=== PATIENT | female | born 1975 | race Caucasian/White ===

== ENCOUNTER 2016-03-18 17:35 | Emergency (ER) | payer OTHER ==
[~2016-03-18] VITALS: Ht 162.6 cm; Wt 122.7 kg
[~2016-03-18 17:35] MED LIST: CHOL100045 PO; DIME240C2 PO; MULT1TAB34 PO; ONDA4TAB9 PO
[2016-03-18 17:48] VITALS: BP 119/79; PULSE 89; RESP 18; O2SAT 97
[2016-03-18] MEDS ORDERED: Ondansetron 2 mg/mL 2 mL Inj IVPUSH ONE (19:45)
--- NOTE | 2016-03-18 19:54 | ED.REPORT ---
HPI-Abd Pain F Under 42 Date of Service Mar 18, 2016 ED Provider: Kevin Cisneros PA-C Claudia is a 32-year-old female who presents with chief complaint of right lower quadrant pain. She states the pain began insidiously approximately 2 days ago. She was seen by her primary care provider perform an ultrasound yesterday. Ultrasound revealed 2, approximately 2cm simple right ovarian cysts. Patient presents emergency room because her pain continues today, she has vomited twice and she developed a fever. She has taken Tylenol to treat the fever. Admits to constipation, anorexia, myalgia. Denies urinary symptoms , vaginal bleeding, discharge, . Denies history of appendectomy. History of tubal ligation, cholecystectomy and multiple sclerosis. Nursing Notes Stated Complaint: RIGHT SIDE ABDOMINAL PAIN, FEVER, VOMITING Chief Complaint: Female Abdominal Pain Nursing Notes Reviewed: Yes Allergies: Coded Allergies: morphine (Verified Allergy, Severe, 05/26/15) aggressive,not herself Contrast Media (Verified Allergy, Unknown, 05/26/15) Iodinated Contrast Media - IV Dye (Unverified Allergy, Unknown, 05/26/15) amoxicillin (Verified Allergy, Unknown, 05/26/15) sertraline (Verified Allergy, Unknown, 05/26/15) Penicillins (Verified Adverse Reaction, Severe, AMOXICILLIN - UPSET STOMACH, 05/26/15) Uncoded Allergies: MRI CONTRAST (Allergy, Severe, Anaphylaxis, 08/06/11) VERIFIED 08-06-11 PAROXATINE (Allergy, Unknown, 04/26/15) Scheduled Cholecalciferol (Vitamin D3) (Vitamin D) 1,000 Unit Capsule 6,000 UNIT PO DAILY Dimethyl Fumarate (Tecfidera) 240 Mg Capsule.dr 240 MG PO BID Multivitamins W-Minerals (One Tablet Daily W/Minerals) 1 Tab Tablet 1 TAB PO DAILYWM Scheduled PRN Ondansetron ODT (Zofran ODT) 4 Mg Tablet 4 MG PO Q4H PRN PRN For Nausea General Time Seen by MD: 19:30 Chief Complaint Abdominal pain Past Medical History Past Medical History Multiple sclerosis PID Rectal Bleeding Depression Anxiety Reports: Asthma, Hypertension Reports: Seizure disorder Past Surgical History Ovarian cyst removal in 2011 Tubal ligation in 2009 Gallbladder surgery Family History noncontributory Smoking History Unknown if Ever Smoker Social History Alcohol Use: Denies alcohol use Other Social History: Local resident Occupation Works at [employer] Ambulatory Status Independent Review of Systems General: Admits fever, chills, malaise. HEENT: Denies congestion, headache, sore throat. Respiratory: Denies dyspnea, cough, shortness of breath, wheezing. Cardiovascular: Denies chest pain, palpitations. Gastrointestinal: Admits vomiting, abdominal pain, constipation Genitourinary: Denies frequency, urgency, dysuria, hematuria. Denies vaginal bleeding/discharge Otherwise as noted in HPI. Physical Exam General: Well developed, well nourished, no acute distress. Head: Atraumatic, normocephalic. Eyes: No scleral icterus or injection. No discharge. Vision grossly intact. ENT: Voice clear, hearing grossly intact. Respiratory: Regular rate and rhythm. Breath sounds present, clear to auscultation and equal bilaterally. Cardiovascular: Regular rate and rhythm, without murmur, gallop or rub. No pedal edema. Gastrointestinal: Obese abdomen is tender over right quadrants, lower greater than upper, without rebound. Bowel sounds normoactive. Skin: Warm and dry. Neurological: Grossly nonfocal. Psychological: alert and oriented. Speech appropriate, linear and logical. Behavior appropriate. Initial Vital Signs Vital Signs (First) Date Time Temp Pulse Resp B/P Pulse Ox O2 Delivery O2 Flow Rate FiO2 03/18/16 17:48 34.2 89 18 119/79 97 Room Air Temperature measured to be 36.9C during physical exam Initial VS: Reviewed Interpretation & Diagnostics Lab Results Interpretation Result Diagram: 03/18/16194403/18/161944 Test 03/18/16 19:45 03/18/16 20:15 White Blood Count 7.5th/mm3 (3.8-10.1) Red Blood Count 4.57mil/mm3 (3.90-5.20) Hemoglobin 13.6g/dL (12.0-15.6) Hematocrit 40.5% (35.0-46.0) Mean Corpuscular Volume 88.6fL (81-100) Mean Corpuscular Hemoglobin 29.8pg (27.0-35.0) Mean Corpuscular Hemoglobin Concent 33.6% (32.0-37.0) Red Cell Distribution Width 12.9% (12.3-15.4) Platelet Count 241bil/L (150-400) Neutrophils (%) (Auto) 78.3% (40-74) Lymphocytes (%) (Auto) 10.8% (14-46) Monocytes (%) (Auto) 10.6% (4-12) Eosinophils (%) (Auto) 0.1% (0-5) Basophils (%) (Auto) 0.1% (0-3) Sodium Level 136mEq/L (134-144) Potassium Level 3.6mEq/L (3.5-5.2) Chloride Level 99mEq/L (97-108) Carbon Dioxide Level 24mmol/L (18-29) Blood Urea Nitrogen 13mg/dL (6-20) Creatinine 0.60mg/dL (0.57-1.00) Estimat Glomerular Filtration Rate 160mL/min (>59) Glucose Level 100mg/dL (60-99) Calcium Level 7.7mg/dL (8.5-10.1) Magnesium Level 1.8mg/dL (1.6-2.6) Total Bilirubin 0.7mg/dL (0.0-1.2) Aspartate Amino Transf (AST/SGOT) 15U/L (0-50) Alanine Aminotransferase (ALT/SGPT) 11U/L (0-32) Alkaline Phosphatase 56U/L (25-150) Total Protein 6.9g/dL (6.4-8.4) Albumin 3.8g/dL (3.4-5.0) Lipase 14U/L (13-60) Hold Spicer Top Tube Received (Received) Urine Color Dark yellow (YELLOW) Urine Appearance Clear (CLEAR,HAZY) Urine pH 6.0 (5.0-8.0) Urine Specific [place] 1.025 (1.003-1.035) Urine Protein Negativemg/dL (NEG,TRACE) Urine Glucose (UA) Negativemg/dL (NEGATIVE) Urine Ketones Negativemg/dL (NEGATIVE) Urine Occult Blood Negative (NEGATIVE) Urine Nitrite Negative (NEGATIVE) Urine Bilirubin Negative (NEGATIVE) Urine Urobilinogen Normalmg/dL (NORMAL) Urine Leukocyte Esterase Negative (NEGATIVE) Urine RBC 0-2/hpf (0-2) Urine WBC 0-5/hpf (0-5) Urine Epithelial Cells Moderate/hpf (NONE-MOD) Urine Crystals None seen (NONE SEEN) Urine Bacteria None/hpf (NONE-FEW) Urine Hyaline Casts None/lpf (NONE) Urine Granular Casts None seen (NONE SEEN) Urine Waxy Casts None seen (NONE SEEN) Urine Red Blood Cell Casts None seen (NONE SEEN) Urine White Blood Cell Casts None seen (NONE SEEN) Urine Mucus None seen (None Seen) Urine Trichomonas None seen (NONE SEEN) Urine Yeast None (NONE SEEN) Urinalysis Comment None Urine Culture Reflexed Not indicated Re-Eval/Medical Decision Med Decision/Clinical Course CT scan showed normal appendix. On my examination she is tender in the right mid to lower abdomen. I do not think she has ovarian torsion. Her ovaries do not look that impressive on the CT. I was most concerned for appendicitis and has been ruled out. At discharge her tenderness had nearly resolved with the opiates. She will be placed on a short course of Percocet for pain. Routine opiate and abdominal pain warnings were given. Discharge & Departure Primary Impression: Abdominal pain Abdominal location: right lower quadrant Qualified Code: R10.31 - Right lower quadrant pain Disposition: Home Discharge Condition All VS Reviewed: Yes Condition: Improved Patient Instructions: Acute Abdominal Pain (ED) Additional Instructions: The laboratory work was reassuring. The CAT scan shows a normal appendix. You do have a few subcentimeter hypodensities in your liver that are too small to characterize. These may need to be followed up with. I would like you to set up a follow-up with a primary care physician for next week to discuss this. For the pain you may take 1-2 Percocet every 6 hours. Drink plenty of liquids. Do not drive tonight or while taking the Percocet. Do not consume alcohol or acetaminophen while taking the Percocet. Return if any problems or any worsening symptoms. Follow up with your primary care doctor next week. Referrals: Bethany Melgar (PCP) copies to: Bethany Melgar Seth PA-C Mar 18, 2016 19:53 Thomas Shaikh DO Mar 19, 2016 00:28 JODY GAGNON Mar 19, 2016 00:29
[2016-03-18 20:03] LABS: BASOPHILS % (AUTO) 0.1 % (0-3); EOSINOPHILS % (AUTO) 0.1 % (0-5); MONOCYTES % (AUTO) 10.6 % (4-12); Mean Corpuscular Hemoglobin 29.8 pg (27.0-35.0); Mean Corpuscular Volume 88.6 fL (81-100); NEUTROPHILS % (AUTO) 78.3 % (40-74); Platelet Count 241 bil/L (150-400)
[2016-03-18 20:18] LABS: Magnesium 1.8 mg/dL (1.6-2.6)
[2016-03-18 20:56] LABS: APPEARANCE,URINE CLEAR (CLEAR,HAZY); COLOR,URINE DARK YELLOW (YELLOW); OCCULT BLOOD,URINE NEGATIVE (NEGATIVE); UROBILINOGEN,URINE NORMAL (NORMAL)
[2016-03-18] MEDS ORDERED: HYDROmorphone 0.5 mg/0.5 mL iSecure Syringe IVPUSH PRN (23:00)
[2016-03-18] MEDS ORDERED: Ondansetron 2 mg/mL 2 mL Inj IVPUSH PRN (23:15)
[2016-03-19] MEDS ORDERED: _oxyCODONE/APAP 5-325 mg Tablet PO PRN (00:30)
[2016-03-19 01:14] VITALS: BP 116/66; PULSE 68; RESP 18; O2SAT 98
[2016-03-19 01:16] VITALS: BP_SYST 108; BP_SYST 109; BP_SYST 116; BP_DIAS 66; BP_DIAS 67; BP_DIAS 72; PULSE 68; PULSE 71
--- NOTE | 2016-03-19 08:15 | DRSVH ---
PROCEDURE: CT ABDOMEN AND PELVIS WITH CONTRAST ([id number]) INDICATIONS: rlq pain TECHNIQUE: After the administration of intravenous contrast, 5 mm thick sections acquired from the diaphragm to the symphysis. 5 mm coronal and sagittal reformats were acquired. For radiation dose reduction, the following was used: automated exposure control, adjustment of mA and/or kV according to patient siflynn granados. COMPARISON: [facility], CT, ABD/PELVIS W/CON (PNL), 04/16/2007, 18:57. FINDINGS: Image quality: Excellent. ABDOMEN: Lung bases: Lung bases are clear. Heart size is normal. Solid organs: Liver is normal in size and enhancement. Liver shows several small sub-1.5 cm areas of decreased attenuation, too small to characterize but unchanged since the previous CT scan 04/16/07. Sp milton remains generous to mildly enlarged at 14.2 cm, unchanged in size since 2007. This would be cons istent with benign cause. Gallbladder has been removed. Biliary system is prominent consistent with post cholecystectomy status. Pancreas enhances normally. No adrenal nodules. Kidneys demonstrate no rmal size and enhancement, without hydronephrosis. Peritoneum and bowel: Bowel loops demonstrate normal wall thickness and caliber. No free fluid or a ir. The appendix is normal and seen on series 4 image 30. Nodes and vessels: No retroperitoneal or mesenteric adenopathy by size criteria. Aorta and inferior vena cava are normal in size. Miscellaneous: No ventral hernias. PELVIS: Genitourinary: Bladder wall thickness is normal. Miscellaneous: No inguinal hernias or adenopathy. Bones: No suspicious bony lesions. No vertebral body compression fractures. IMPRESSION: 1. Cause of right lower quadrant pain is not identified. Normal appendix normal right kidney. No maryjane s abnormality of uterus or ovaries. 2. 2 lesions in the right lobe of the liver unchanged in size since CT of 2007 and consistent with be nign cause but too small to characterize. 3. Previous cholecystectomy. Dictated by: Juan J Scruggs M.D. on 03/19/2016 at 8:13 this report corresponds to the findings of e preliminary NSR report. Approved by: Juan J Scruggs M.D. on 03/19/2016 at 8:13
== END 2016-03-19 01:15 | disposition home or self-care (01) ==
LOC: SED 17:35
DX: R10.31 Right lower quadrant pain (principal); K59.00 Constipation, unspecified; M79.1 Myalgia; R63.0 Anorexia; R50.9 Fever, unspecified; R11.10 Vomiting, unspecified; G35 Multiple sclerosis; J45.909 Unspecified asthma, uncomplicated; I10 Essential (primary) hypertension; Z88.0 Allergy status to penicillin; Z88.1 Allergy status to other antibiotic agents; Z88.5 Allergy status to narcotic agent; Z88.8 Allergy status to other drugs, medicaments and biological substances; Z91.041 Radiographic dye allergy status
CPT/HCPCS: 36415; 74177; 80053; 81000; 81025; 83690; 83735; 85025; 96361; 96374; 96375; 99285; J1170; J2405; Q9967